=== PATIENT | male | born 1975 | race Asian ===

== ENCOUNTER 2017-06-12 01:17 | Inpatient (IN) | payer BC, OTHER ==
[~2017-06-12] VITALS: Ht 188 cm; Wt 99.0 kg
[2017-06-12] MEDS ORDERED: HYDROmorphone 1 MG/ML, 1ML ONE (01:51)
[2017-06-12] MEDS ORDERED: ONDANSETRON 2MG/ML, 2ML ONE ×2 (01:52→03:06)
[2017-06-12 02:00] LABS: HEMATOCRIT 48.3 % (39.2-51.8); HEMOGLOBIN 16.3 g/dL (13.7-18.0); WHITE BLOOD COUNT 13.3 x10^3/uL (3.4-10)
[2017-06-12] MEDS ORDERED: HYDROmorphone 1 MG/ML, 1ML IVPush PRN (02:00)
[2017-06-12] MEDS ORDERED: SODIUM CHLORIDE FLUSH 10ML SYR IVF ONE (02:00)
[2017-06-12] MEDS ORDERED: ONDANSETRON 2MG/ML, 2ML IVPush ONE ×2 (02:00→03:30)
[2017-06-12] MEDS ORDERED: SODIUM CHLORIDE 0.9% 1,000ML IVBOLUS ONE (02:00)
[2017-06-12 02:02] LABS: ASPARTATE AMINO TRANSFERASE 18 U/L (15-37); BLOOD UREA NITROGEN 16 mg/dL (7-18)
[2017-06-12] MEDS ORDERED: DICY10CA53 PO (02:10)
[2017-06-12] MEDS ORDERED: ONDA4TAB10 PO (02:10)
[2017-06-12 02:28] LABS: DIFF TOTAL CELLS COUNTED 100 CELL DIFF
[2017-06-12 02:29] LABS: VERIFY COUNTS? YES
[2017-06-12] MEDS ORDERED: OMNIPAQUE 350 MG/ML, 100ML BOTTLE ONE (03:27)
[2017-06-12] MEDS ORDERED: ONDANSETRON 2MG/ML, 2ML IVPush PRN (04:00)
[2017-06-12] MEDS ORDERED: morphine SULFATE 10 MG/ML, 1ML IVPush PRN (04:00)
[2017-06-12] MEDS ORDERED: LORazepam 2 MG/ML, 1ML IVPush PRN (04:00)
[2017-06-12] MEDS ORDERED: hydrALAzine 20 MG/ML, 1ML IVPush PRN (04:00)
[2017-06-12] MEDS: SODIUM CHLORIDE 0.9% 1,000 ML IV SCH ×3 (05:06→20:14)
[2017-06-12] MEDS ORDERED: METOCLOPRAMIDE 5 MG/ML, 2ML ONE (07:33)
[2017-06-12] MEDS ORDERED: PANTOPRAZOLE 40 MG IV ONE (07:33)
[2017-06-12] MEDS ORDERED: ENOXAPARIN 40 MG/0.4 ML ONE (07:34)
[2017-06-12] MEDS: PANTOPRAZOLE 40 MG IV IVPush SCH (07:37)
[2017-06-12] MEDS: METOCLOPRAMIDE 5 MG/ML, 2ML IVPush SCH ×3 (07:41→18:39)
[2017-06-12] MEDS: ENOXAPARIN 40 MG/0.4 ML SQ SCH (09:25)
[2017-06-12 12:15] VITALS: BP 128/86
[2017-06-12 20:00] VITALS: BP 132/80
[2017-06-13 02:00] VITALS: BP 128/76
[2017-06-13] MEDS: SODIUM CHLORIDE 0.9% 1,000 ML IV SCH ×2 (02:08→08:41)
[2017-06-13] MEDS: METOCLOPRAMIDE 5 MG/ML, 2ML IVPush SCH ×4 (02:08→17:45)
[2017-06-13 06:01] LABS: HEMATOCRIT 45.6 % (39.2-51.8); HEMOGLOBIN 15.5 g/dL (13.7-18.0); WHITE BLOOD COUNT 13.7 x10^3/uL (3.4-10)
[2017-06-13 06:29] LABS: ASPARTATE AMINO TRANSFERASE 14 U/L (15-37); BLOOD UREA NITROGEN 12 mg/dL (7-18)
[2017-06-13] MEDS: PANTOPRAZOLE 40 MG IV IVPush SCH (08:37)
[2017-06-13] MEDS: ENOXAPARIN 40 MG/0.4 ML SQ SCH (08:41)
[2017-06-13 08:42] VITALS: BP 127/75
[2017-06-13 13:02] VITALS: BP 131/81
[2017-06-13 19:54] VITALS: BP 139/96
[2017-06-14] MEDS ORDERED: METOCLOPRAMIDE 5 MG/ML, 2ML IVPush PRN
[2017-06-14 02:17] VITALS: BP 148/79
[2017-06-14] MEDS: SODIUM CHLORIDE 0.9% 1,000 ML IV SCH ×2 (03:48→14:02)
[2017-06-14 05:45] LABS: HEMATOCRIT 45.7 % (39.2-51.8); HEMOGLOBIN 15.4 g/dL (13.7-18.0); WHITE BLOOD COUNT 14.5 x10^3/uL (3.4-10)
[2017-06-14 06:02] LABS: ASPARTATE AMINO TRANSFERASE 16 U/L (15-37); BLOOD UREA NITROGEN 12 mg/dL (7-18)
[2017-06-14 07:15] VITALS: BP 125/76
[2017-06-14] MEDS: PANTOPRAZOLE 40 MG IV IVPush SCH (09:09)
[2017-06-14] MEDS: ENOXAPARIN 40 MG/0.4 ML SQ SCH (09:10)
[2017-06-14 14:47] VITALS: BP 133/84
[2017-06-14] MEDS ORDERED: PROPOFOL 10 MG/ML, 20ML ONE (17:14)
[2017-06-14] MEDS ORDERED: FENTANYL PF 100 MCG/2ML ONE ×4 (17:16→20:41)
[2017-06-14] MEDS ORDERED: METOPROLOL 1 MG/ML, 5ML ONE (17:17)
[2017-06-14] MEDS ORDERED: SUCCINYLCHOLINE 20 MG/ML, 10ML ONE (17:17)
[2017-06-14] MEDS ORDERED: CEFOTETAN 2 GM ONE (17:17)
[2017-06-14] MEDS ORDERED: MIDAZOLAM 1 MG/ML, 2ML ONE (17:17)
[2017-06-14] MEDS ORDERED: ROCURONIUM 10 MG/ML ONE ×3 (17:17)
[2017-06-14] MEDS ORDERED: KETAMINE 10 MG/ML, 20ML ONE (17:44)
[2017-06-14] MEDS ORDERED: ONDANSETRON 2MG/ML, 2ML ONE (18:59)
[2017-06-14] MEDS ORDERED: DEXAMETHASONE 4 MG/ML, 1ML ONE (18:59)
[2017-06-14] MEDS ORDERED: NEOSTIGMINE 1 MG/ML, 10ML ONE (19:01)
[2017-06-14] MEDS ORDERED: METOCLOPRAMIDE 5 MG/ML, 2ML IV PRN (20:00)
[2017-06-14] MEDS ORDERED: PROMETHAZINE 25 MG/ML, 1ML IV PRN (20:00)
[2017-06-14] MEDS ORDERED: FENTANYL PF 100 MCG/2ML IV PRN (20:00)
[2017-06-14] MEDS ORDERED: MIDAZOLAM 1 MG/ML, 2ML IV PRN (20:00)
[2017-06-14] MEDS ORDERED: ACETAMINOPHEN 325 MG TABLET PO PRN (20:00)
[2017-06-14] MEDS ORDERED: HYDROcodone/APAP 7.5-325MG/15ML UDC PO PRN (20:00)
[2017-06-14] MEDS ORDERED: MEPERIDINE/PF 25MG/0.5ML IVPush PRN (20:00)
[2017-06-14] MEDS ORDERED: ALBUTEROL SULFATE 2.5 MG/3 ML NPPB PRN (20:00)
[2017-06-14] MEDS ORDERED: ONDANSETRON 2MG/ML, 2ML IVPush PRN (20:00)
[2017-06-14] MEDS ORDERED: EPHEDRINE 50 MG/ML, 1ML IVPush PRN (20:00)
[2017-06-14] MEDS ORDERED: METOPROLOL 1 MG/ML, 5ML IV PRN (20:00)
[2017-06-14] MEDS ORDERED: OXYcodone 5 MG/5 ML ORAL.SOL UDC PO PRN (20:00)
[2017-06-14] MEDS ORDERED: KETOROLAC 30 MG/1 ML IV PRN (20:00)
[2017-06-14] MEDS ORDERED: LABETALOL 5MG/ML, 20ML IV PRN (20:00)
[2017-06-14] MEDS ORDERED: hydrALAzine 20 MG/ML, 1ML IV PRN (20:00)
[2017-06-14] MEDS ORDERED: MEPERIDINE/PF 25MG/0.5ML ONE (20:12)
[2017-06-14] MEDS ORDERED: HYDROmorphone 1 MG/ML, 1ML ONE ×2 (20:13→20:41)
[2017-06-14] MEDS: HYDROmorphone 1 MG/ML, 1ML IV PRN ×2 (20:19→20:33)
[2017-06-14 21:10] VITALS: BP 134/89
[2017-06-14] MEDS ORDERED: SODIUM CHLORIDE 0.9% 1,000 ML IV SCH (22:00)
[2017-06-14] MEDS ORDERED: MORPHINE SULFATE 4 MG/ML, 1ML IVPush PRN (22:00)
[2017-06-14] MEDS ORDERED: ONDANSETRON 2MG/ML, 2ML IV PRN (22:00)
[2017-06-14] MEDS: FAMOTIDINE 20 MG/2 ML IVPush SCH (23:00)
[2017-06-15] MEDS: SODIUM CHLORIDE 0.9% 1,000 ML IV SCH ×3 (03:21→22:06)
[2017-06-15 03:39] VITALS: BP 138/94
[2017-06-15] MEDS ORDERED: CEFOTETAN PMX 2GM/50ML 50 ML IVPB ONE (05:00)
[2017-06-15 07:34] VITALS: BP 115/81
[2017-06-15 08:52] LABS: HEMATOCRIT 48.4 % (39.2-51.8); HEMOGLOBIN 16.1 g/dL (13.7-18.0); WHITE BLOOD COUNT 9.9 x10^3/uL (3.4-10)
[2017-06-15] MEDS: FAMOTIDINE 20 MG/2 ML IVPush SCH ×2 (08:54→21:54)
[2017-06-15 09:00] LABS: ASPARTATE AMINO TRANSFERASE 16 U/L (15-37); BLOOD UREA NITROGEN 14 mg/dL (7-18)
[2017-06-15 13:39] VITALS: BP 128/53
[2017-06-15] MEDS: ENOXAPARIN 30 MG/0.3 ML SQ SCH (15:46)
[2017-06-15 18:52] VITALS: BP 134/92
[2017-06-16 01:00] VITALS: BP 162/95
[2017-06-16] MEDS ORDERED: SODIUM CHLORIDE 0.9% 1,000 ML IV SCH (03:00)
[2017-06-16] MEDS: ENOXAPARIN 30 MG/0.3 ML SQ SCH ×2 (03:53→16:08)
[2017-06-16 05:28] LABS: HEMATOCRIT 43.2 % (39.2-51.8); HEMOGLOBIN 14.5 g/dL (13.7-18.0); WHITE BLOOD COUNT 10.3 x10^3/uL (3.4-10)
[2017-06-16 05:39] LABS: BLOOD UREA NITROGEN 14 mg/dL (7-18)
[2017-06-16] MEDS: SODIUM CHLORIDE 0.9% 1,000 ML IV SCH (07:44)
[2017-06-16 08:30] VITALS: BP 130/84
[2017-06-16] MEDS: FAMOTIDINE 20 MG/2 ML IVPush SCH ×2 (10:51→21:53)
[2017-06-16 14:43] VITALS: BP 142/85
[2017-06-16 19:00] VITALS: BP 123/81
[2017-06-17] MEDS: ENOXAPARIN 30 MG/0.3 ML SQ SCH ×2 (03:32→15:26)
[2017-06-17 03:36] VITALS: BP 125/77
[2017-06-17 07:22] VITALS: BP 116/79
[2017-06-17] MEDS: SODIUM CHLORIDE 0.9% 1,000 ML IV SCH ×2 (08:08→20:21)
[2017-06-17] MEDS: FAMOTIDINE 20 MG/2 ML IVPush SCH ×2 (09:55→22:47)
[2017-06-17 13:32] VITALS: BP 124/84
[2017-06-17] MEDS ORDERED: MORPHINE SULFATE 4 MG/ML, 1ML IVPush PRN (16:00)
[2017-06-17] MEDS ORDERED: OXYcodone/APAP 5/325MG TABLET PO PRN (16:00)
[2017-06-17 19:29] VITALS: BP 127/85
[2017-06-18 02:27] VITALS: BP 131/88
[2017-06-18] MEDS: ENOXAPARIN 30 MG/0.3 ML SQ SCH ×2 (04:27→15:30)
[2017-06-18] MEDS: SODIUM CHLORIDE 0.9% 1,000 ML IV SCH ×2 (04:42→16:00)
[2017-06-18 05:49] LABS: HEMATOCRIT 37.6 % (39.2-51.8); HEMOGLOBIN 12.6 g/dL (13.7-18.0); WHITE BLOOD COUNT 8.3 x10^3/uL (3.4-10)
[2017-06-18 06:31] LABS: BLOOD UREA NITROGEN 9 mg/dL (7-18)
[2017-06-18] MEDS ORDERED: OXYcodone/APAP 5/325MG TABLET PO PRN (08:00)
[2017-06-18 09:17] VITALS: BP 131/88
[2017-06-18] MEDS: FAMOTIDINE 20 MG/2 ML IVPush SCH ×2 (10:30→21:04)
[2017-06-18] MEDS: POTASSIUM CHLORIDE 20 MEQ TAB.ER.PRT PO SCH ×2 (11:26→19:24)
[2017-06-18 13:51] VITALS: BP 127/85
[2017-06-18 21:27] VITALS: BP 122/85
[2017-06-19 03:21] VITALS: BP 125/82
[2017-06-19] MEDS: ENOXAPARIN 30 MG/0.3 ML SQ SCH (03:30)
[2017-06-19] MEDS: SODIUM CHLORIDE 0.9% 1,000 ML IV SCH (04:35)
[2017-06-19 05:46] LABS: BLOOD UREA NITROGEN 8 mg/dL (7-18)
[2017-06-19 08:04] VITALS: BP 126/78
[2017-06-19] MEDS ORDERED: FLU VACC QS2017-18 (36MOS+) UP/PF 0.5 ML IM-VACC ONE (09:30)
[2017-06-19] MEDS ORDERED: FAMOTIDINE 20 MG TABLET PO SCH (10:00)
[2017-06-19 10:54] VITALS: BP 121/78
[2017-06-19] MEDS ORDERED: OXYC-302 PO (11:36)
== END 2017-06-19 12:10 | disposition home or self-care (01) | DRG 335 ==
LOC: ED 03:52 → EDIP 03:53 → ED 03:57 → 4WST 12:07 → 4NOR 06-15 00:40 → 4EST 06-18 12:05 → 4NOR 06-18 12:05 → DCLOUNGE 06-19 11:20
PROVIDERS: ADMIT Internal Medicine; ATTEND Internal Medicine
PROC: 0DNW0ZZ Release Peritoneum, Open Approach (ICD-10-PCS; 2017-06-14)
PROC: 0DTJ0ZZ Resection of Appendix, Open Approach (ICD-10-PCS; principal; 2017-06-14 17:00)
PROC: 3E0234Z Introduction of Serum, Toxoid and Vaccine into Muscle, Percutaneous Approach (ICD-10-PCS; 2017-06-19)
DX: K57.30 Diverticulosis of large intestine without perforation or abscess without bleeding (principal); N17.0 Acute kidney failure with tubular necrosis; R17 Unspecified jaundice; Z23 Encounter for immunization; D72.829 Elevated white blood cell count, unspecified; E87.6 Hypokalemia; Z90.49 Acquired absence of other specified parts of digestive tract; Z90.81 Acquired absence of spleen; K66.0 Peritoneal adhesions (postprocedural) (postinfection)
CPT/HCPCS: 36415; 74000; 74020; 74177; 74245; 80048; 80053; 81001; 83690; 83735; 84100; 85025; 87086; 88302; 88304; 96361; 96372; 96374; 96375; 96376; J1100; J1170; J1650; J2175; J2250; J2270; J2405; J2704; J2710; J3010; Q9967; C9113; J0330; J2060; J2765; J7030; S0028; S0074

== ENCOUNTER 2021-04-10 14:41 | Emergency (ER) | payer BC, MEDICAID ==
[~2021-04-10] VITALS: Ht 188 cm; Wt 104.8 kg
[~2021-04-10 14:41] MED LIST: DICY10CA53 PO; ONDA4TAB10 PO; OXYC1TAB14 PO
[2021-04-10 15:12] VITALS: BP 148/93
--- NOTE | 2021-04-10 15:29 | NUR ---
pt presents to ed with L knee pain/swelling starting this morning. erpa at bedside for initial eval/assessment.
[2021-04-10] MEDS ORDERED: KETOROLAC 30 MG/1 ML IM ONE (15:30)
[2021-04-10] MEDS ORDERED: KETOROLAC 30 MG/1 ML ONE (15:40)
--- NOTE | 2021-04-10 15:57 | NUR ---
pt educated on discharge instructions, verbalized understanding. crutch walking to dc desk with steady gait.
== END 2021-04-10 16:00 | disposition home or self-care (01) ==
LOC: ED 15:55
DX: S83.92XA Sprain of unspecified site of left knee, initial encounter (principal); M25.462 Effusion, left knee; X58.XXXA Exposure to other specified factors, initial encounter; Y93.89 Activity, other specified; Y92.89 Other specified places as the place of occurrence of the external cause; Y99.8 Other external cause status
CPT/HCPCS: 96372; 99283; J1885